=== PATIENT | female | born 1980 | race Caucasian/White ===

== ENCOUNTER 2022-08-24 08:20 | Emergency (ER) | payer OTHER, MEDICAID ==
[2022-08-24 08:36] VITALS: BP 114/61
--- NOTE | 2022-08-24 08:55 | ED Physician Documentation ---
PD HPI Fall - Stated complaint Stated Complaint: RT WRIST/ VARGAS PAIN - Chief complaint Chief Complaint: Trauma Ext - History obtained from History obtained from: Patient - History of Present Illness Mechanism of injury: Slipped Fall distance: Standing position (She had clean the shower with some bleach and states the bottom was slippery. She slipped and fell getting in. Banged her vargas and landed on her hand. Pain at the thenar thumb.) Where injury occurred: Home Timing - onset: Last night Injury(ies) location: Right Upper Extremity, Right Lower Extremity Quality of pain: Pain, Aching Associated symptoms: Weakness (she states thumb movement hurts and feels weak. Has swelling and bruising of thenar area and base of thumb. Some soreness right vargas.). No: Paresthesias Worsens with: Movement, Palpation Similar symptoms before: Has not had sx before Recently seen: Not recently seen Review of Systems Cardiac: denies: Chest pain / pressure GI: denies: Abdominal Pain Skin: denies: Abrasion (s), Laceration (s) Neurologic: denies: Confused, Altered mental status, Headache, Head injury PD PAST MEDICAL HISTORY - Present Medications Home Medications: Ambulatory Orders Medication Instructions Recorded Confirmed Semaglutide [Ozempic] 2 mg SQ .ONCE A WEEK 08/24/22 08/24/22 amLODIPine [Norvasc] 10 mg PO DAILY 08/24/22 08/24/22 hydroCHLOROthiazide [Hydrodiuril] 25 mg PO DAILY 08/24/22 08/24/22 metFORMIN [Glucophage] 1,000 mg PO BIDWM 08/24/22 08/24/22 - Allergies Allergies/Adverse Reactions: Allergies Allergy/AdvReac Type Severity Reaction Status Date / Time Unable to Assess Allergy Verified 08/24/22 08:35 PD ED PE NORMAL - Vitals Vital signs reviewed: Yes - General General: Alert and oriented X 3, Well developed/nourished - Derm Derm: Normal color, Warm and dry - Extremities Extremities: Other (The right vargas with some mild tenderness in the soft tissue. No bony tenderness and she is able to bear weight fully. The right thumb shows bruising and swelling and tenderness in the thenar eminence and palmar base of the thumb. No tender nor laxity at the UCL area. Opposition limited. ) - Neuro Neuro: No motor deficit, No sensory deficit Results - Vitals Vitals: Vital Signs - 24 hr 08/24/22 08:29 Temperature 98.6 C H Heart Rate 66 Respiratory 15 Rate Blood Pressure 114/61 O2 Saturation 98 Oxygen O2 Source Room air - Rads (name of study) right hand Relevant Findings:: Prelim report reviewed, EMP independent interpretation of test (no fractures), See rad report right ankle Relevant Findings:: Prelim report reviewed, EMP independent interpretation of test (no fractures), See rad report PD Medical Decision Making - ED course Complexity details: reviewed results, considered differential (Bruising and likely some sprain at the base of the thumb and into the thenar muscles. No apparent injury of the UCL. No fracture. Opposition is limited due to pain and swelling but should improve. Velcro thumb spica splint is given.), d/w patient Departure - Departure Disposition: 01 Home, Self Care Clinical Impression: Fall from slip, trip, or stumble Qualifiers: Encounter type: initial encounter Qualified Code(s): W01.0XXA - Fall on same level from slipping, tripping and stumbling without subsequent striking against object, initial encounter Thumb sprain Qualifiers: Encounter type: initial encounter Sprain of finger site: metacarpophalangeal joint Laterality: right Qualified Code(s): S63.641A - Sprain of metacarpophalangeal joint of right thumb, initial encounter Contusion, lower leg Qualifiers: Encounter type: initial encounter Laterality: right Qualified Code(s): S80.11XA - Contusion of right lower leg, initial encounter Condition: Stable Record reviewed to determine appropriate education?: Yes Instructions: ED Sprain Finger Follow-Up: Orthopedic Care [Provider Group] Comments: Your x-rays are good without any signs of fractures. Obviously you have the bruising of the right vargas and that should slowly improve with time. Activity as tolerated. The thumb base sounds like it sprained with some partial tear of some ligaments or muscles given the pain on motion. There certainly can be just some bruising component with swelling and stiffness which would get better sooner than soft tissue injuries such as ligament strain/tear. On exam it does not seem like you have the more significant type of injuries such as the anchoring ligament for the base of the thumb. As such I believe you can get better which is the thumb splint over the next 1 to 3 weeks. Follow-up with orthopedics if not improving really well within the first 1 to 1- 1/2 weeks and resolved by 3 weeks. Elevate ice and rest for swelling often today. Tylenol ibuprofen as needed for pains. Use the thumb splint on most of the time. Discharge Date/Time: 08/24/22 09:54
--- NOTE | 2022-08-24 09:21 | XRAY Report ---
PROCEDURE: Wrist 4 View RT INDICATIONS: Trauma TECHNIQUE: 4 views of the wrist were acquired. COMPARISON: None. FINDINGS: Bones: No fractures or dislocations. No suspicious bony lesions. Scaphoid view: Scaphoid is intact. Soft tissues: No suspicious soft tissue calcifications or masses. IMPRESSION: No acute wrist fracture or dislocation. Reviewed by: Bryce Echevarria MD on 08/24/2022 8:20 AM [facility] Approved by: Bryce Echevarria MD on 08/24/2022 8:20 AM [facility] Station ID: [id number]
--- NOTE | 2022-08-24 09:22 | XRAY Report ---
PROCEDURE: Ankle 3 View RT INDICATIONS: Trauma TECHNIQUE: 3 views of the ankle were acquired. COMPARISON: None. FINDINGS: Bones: No fractures or dislocations. Mild midfoot and hindfoot joint osteoarthritic changes are seen with joint space narrowing and subchondral sclerosis. Well-defined plantar and dorsal calcaneal enth esophytes also noted. Ankle mortise is normally aligned. No suspicious bony lesions. Soft tissues: No tibiotalar joint effusion. Achilles tendon appears normal. IMPRESSION: No acute ankle fracture or dislocation. Mild midfoot and hindfoot joint osteoarthritis and calcaneal enthesophytes as above. Reviewed by: Bryce Echevarria MD on 08/24/2022 8:21 AM [facility] Approved by: Bryce Echevarria MD on 08/24/2022 8:21 AM [facility] Station ID: [id number]
== END 2022-08-24 09:54 | disposition home or self-care (01) ==
LOC: ED 08:20
DX: S63.641A Sprain of metacarpophalangeal joint of right thumb, initial encounter (principal); S80.11XA Contusion of right lower leg, initial encounter; W18.2XXA Fall in (into) shower or empty bathtub, initial encounter
CPT/HCPCS: 99283

== ENCOUNTER 2022-10-18 13:28 | Emergency (ER) | payer OTHER, MEDICAID ==
[2022-10-18 13:51] LABS: BASOPHILS % (AUTO) 0.6 %; EOSINOPHILS # (AUTO) 0.3 10^3/uL (0.0-0.7); HCT - HEMATOCRIT 40.6 % (37.0-47.0); HGB - HEMOGLOBIN 13.6 g/dL (12.0-16.0); LYMPHOCYTES # (AUTO) 1.7 10^3/uL (1.5-3.5); LYMPHOCYTES % (AUTO) 25.4 %; MEAN CORPUSCULAR HEMOGLOBIN 29.5 pg (27.0-31.0); MEAN CORPUSCULAR HGB CONC 33.5 g/dL (32.0-36.0); MEAN CORPUSCULAR VOLUME 88.1 fL (81.0-99.0); MEAN PLATELET VOLUME 10.4 fL (7.9-10.8); MONOCYTES # (AUTO) 0.4 10^3/uL (0.0-1.0); MONOCYTES % (AUTO) 5.9 %; NEUTROPHILS # (AUTO) 4.2 10^3/uL (1.5-6.6); NEUTROPHILS % (AUTO) 63.9 %; PLT - PLATELET COUNT 237 10^3/uL (130-450); RED BLOOD COUNT 4.61 10^6/uL (4.20-5.40); RED CELL DISTRIBUTION WIDTH 12.6 % (12.0-15.0); WHITE BLOOD COUNT 6.6 x10^3/uL (4.8-10.8)
[2022-10-18 14:04] LABS: ALBUMIN 4.1 g/dL (3.2-5.5); ALBUMIN/GLOBULIN RATIO 1.2 (1.0-2.2); BILIRUBIN,TOTAL 0.7 mg/dL (0.2-1.0); CALCIUM 9.3 mg/dL (8.5-10.3); CREATININE 0.8 mg/dL (0.4-1.0); POTASSIUM 3.2 mmol/L (3.5-5.0); TOTAL PROTEIN 7.4 g/dL (6.7-8.2)
[2022-10-18] MEDS ORDERED: SODIUM CHLORIDE 0.9% 1,000 ML IV STA (14:38)
[2022-10-18] MEDS ORDERED: POTASSIUM BICARB 25 MEQ TABLET PO STA (14:40)
--- NOTE | 2022-10-18 14:42 | ED Physician Documentation ---
History of Present Illness - Stated complaint Stated Complaint: DIZZINESS - Chief complaint Chief Complaint: Neuro - Additonal information Additional information: 42-year-old female presents emergency department for evaluation of feeling lig htheaded, dizzy and a syncopal episode last night. She states that for several weeks she has been feeling fatigued and just not herself. Last night she heard her son crying in the other room. He is a special needs child. She got up in her arms and legs just felt very heavy and she collapsed to the ground. She is unsure if she lost consciousness or not. She denies that she is having palpitations, chest pain or shortness of air. Since then she has just felt dizzy and lightheaded. Some nausea but no vomiting. No abdominal pain. Review of Systems Constitutional: reports: Fatigue. denies: Fever Eyes: reports: Reviewed and negative Nose: reports: Reviewed and negative Throat: reports: Reviewed and negative Cardiac: denies: Chest pain / pressure, Palpitations, Pedal edema Respiratory: reports: Reviewed and negative GI: reports: Reviewed and negative : reports: Reviewed and negative Musculoskeletal: reports: Reviewed and negative Neurologic: reports: Syncope, Other (Lightheaded) Psychiatric: reports: Reviewed and negative PD PAST MEDICAL HISTORY - Present Medications Home Medications: Ambulatory Orders Medication Instructions Recorded Confirmed Semaglutide [Ozempic] 2 mg SQ .ONCE A WEEK 08/24/22 08/24/22 amLODIPine [Norvasc] 10 mg PO DAILY 08/24/22 08/24/22 hydroCHLOROthiazide [Hydrodiuril] 25 mg PO DAILY 08/24/22 08/24/22 metFORMIN [Glucophage] 1,000 mg PO BIDWM 08/24/22 08/24/22 - Allergies Allergies/Adverse Reactions: Allergies Allergy/AdvReac Type Severity Reaction Status Date / Time Unable to Assess Allergy Verified 08/24/22 08:35 PD ED PE NORMAL - General General: Alert and oriented X 3, No acute distress - HEENT HEENT: Atraumatic, Moist mucous membranes - Neck Neck: Supple, no meningeal sign - Cardiac Cardiac: RRR, No murmur, Strong equal pulses - Respiratory Respiratory: No respiratory distress, Clear bilaterally - Abdomen Abdomen: Normal bowel sounds, Soft, Non tender - Back Back: No CVA TTP - Derm Derm: Normal color, Warm and dry, No rash - Extremities Extremities: No deformity - Neuro Neuro: Alert and oriented X 3, gamer 2-12 intact, No motor deficit, No sensory deficit, Normal speech, Other (Normal finger-nose, normal gait, normal heel/toe, normal rapid alternating movements) Eye Opening: Spontaneous Motor: Obeys Commands Verbal: Oriented GCS Score: 15 Results - Vitals Vitals: Vital Signs - 24 hr 10/18/22 10/18/22 10/18/22 13:32 14:39 15:09 Temperature 37.1 C Heart Rate 79 77 Heart Rate [ 73 Sitting] Heart Rate [ 71 Standing] Heart Rate [ 78 Supine] Respiratory 18 16 Rate Blood Pressure 127/76 126/83 H Blood Pressure 125/84 H [Sitting] Blood Pressure 129/81 H [Standing] Blood Pressure 122/78 [Supine] O2 Saturation 98 97 Oxygen O2 Source Room air - EKG (time done) 1337 EKG releavant findings:: EKG personally interpreted by author of this note. Relevant findings are: Rate: Rate (enter#) (76) Rhythm: NSR [place]: Normal Intervals: Normal [place] QRS: Normal Ischemia: Non specific changes Compare to prior EKG: Old EKG unavailable Computer interpretation: Agree with computer - Labs Labs: Laboratory Tests 10/18/22 10/18/22 10/18/22 13:39 13:45 13:45 WBC 6.6 RBC 4.61 Hgb 13.6 Hct 40.6 MCV 88.1 MCH 29.5 MCHC 33.5 RDW 12.6 Plt Count 237 MPV 10.4 Neut # (Auto) 4.2 Lymph # (Auto) 1.7 Elbert # (Auto) 0.4 Eos # (Auto) 0.3 Baso # (Auto) 0.0 Absolute Nucleated RBC 0.00 Nucleated RBC % 0.0 Sodium 139 Potassium 3.2 L Chloride 102 Carbon Dioxide 28 Anion Gap 9.0 BUN 9 Creatinine 0.8 Estimated GFR (MDRD) 79 L Glucose 120 H POC Whole Bld Glucose 119 H Calcium 9.3 Total Bilirubin 0.7 AST 16 ALT 18 Alkaline Phosphatase 39 L Troponin I High Sens Total Protein 7.4 Albumin 4.1 Globulin 3.3 Albumin/Globulin Ratio 1.2 Lipase 36 TSH Serum HCG, Qual 10/18/22 10/18/22 10/18/22 13:45 13:45 13:45 WBC RBC Hgb Hct MCV MCH MCHC RDW Plt Count MPV Neut # (Auto) Lymph # (Auto) Elbert # (Auto) Eos # (Auto) Baso # (Auto) Absolute Nucleated RBC Nucleated RBC % Sodium Potassium Chloride Carbon Dioxide Anion Gap BUN Creatinine Estimated GFR (MDRD) Glucose POC Whole Bld Glucose Calcium Total Bilirubin AST ALT Alkaline Phosphatase Troponin I High Sens < 2.3 L Total Protein Albumin Globulin Albumin/Globulin Ratio Lipase TSH 3.17 Serum HCG, Qual NEGATIVE - Rads (name of study) CT head Relevant Findings:: Final report received (Noncontrast CT head within normal limits) PD Medical Decision Making - ED course Complexity details: reviewed results, re-evaluated patient, considered differential, d/w patient ED course: 42-year-old female presents emergency department for evaluation of what sounds like a syncopal episode last night when she was ambulating to her son's room after she had gotten out of bed because she heard him cry. She denied any prodromal symptoms of the syncope. Denies chest pain, shortness of air or palpitations. No history of similar but states that for the last several weeks she has not been feeling herself. Here in the emergency department she appears alert and well-appearing. Normal vital signs for age. No fever, tachycardia or hypotension. She had an unremarkable cardiopulmonary auscultation. Normal neurological exam and normal cerebellar exam. We did obtain a CBC, electrolytes and TSH and troponin. Per my interpretation the only abnormal finding was that of mild hyperglycemia with a blood sugar of 120. We did obtain orthostatics which were negative Patient was administered a liter of fluids here in the emergency department A chest x-ray was normal for age showed no signs of pneumonia, pleural effusion or pneumothorax. We did obtain orthostatic vital signs today in the emergency department and that was negative. Subsequently a CT of the head was obtained for the report of persistent dizziness and was also negative. At this time is not clear what the etiology of the patient's symptoms are though I suspect she simply had a syncopal episode after being in bed last night. I have advised her to formally discuss this ED visit with her primary care pro vider. She may benefit from referral for an echocardiogram or Holter monitor. The usual emergent return precautions were discussed for worsening symptoms. Departure - Departure Disposition: 01 Home, Self Care Clinical Impression: Syncope Qualifiers: Syncope type: unspecified Qualified Code(s): R55 - Syncope and collapse Condition: Stable Record reviewed to determine appropriate education?: Yes Comments: You were seen today because last night while walking you suddenly dropped to the ground. Is not clear if you fainted or simply got very dizzy and lost balance. The chest x-ray today is normal. Your CT of the head is normal. Your EKG also shows no worrisome findings. Your labs including CBC, electrolytes, troponin and thyroid panel are also essentially normal. You did have a mild blood glucose elevation of 120. At this time it is not clear what the cause of your symptoms was last night though your neurological and cardiovascular exam are normal. I would like you to discuss this ED visit with your primary care doctor. You may benefit from referral for a Holter monitor or echocardiogram. Please return to the ER if your symptoms are worsening
[2022-10-18 15:03] LABS: HCG,QUALITATIVE BLOOD NEGATIVE
--- NOTE | 2022-10-18 15:56 | CT Report ---
PROCEDURE: HEAD WO INDICATIONS: dizzy, headache TECHNIQUE: Noncontrast 4.5 mm thick angled axial sections acquired from the foramen magnum to the vertex. For r adiation dose reduction, the following was used: automated exposure control, adjustment of mA and/or kV according to patient size. COMPARISON: None. FINDINGS: Image quality: There is streak artifact seen through the skull base. CSF spaces: Basal cisterns are patent. No extra-axial fluid collections. Ventricles are normal in size and shape. Brain: No midline shift. No intracranial masses or hemorrhage. Mcconnell-white matter interface is norm al. Skull and face: Calvarium and visualized facial bones are intact, without suspicious lesions. Sinuses: Visualized sinuses and mastoids are clear. IMPRESSION: Noncontrast head CT within normal limits. To the limits of this noncontrast head CT, no findings of masses or mass effect can be seen. No hydro cephalus. Reviewed by: Dominic Ferrell MD on 10/18/2022 2:55 PM [facility] Approved by: Dominic Ferrell MD on 10/18/2022 2:55 PM [facility] Station ID: [id number]
[2022-10-18 16:24] VITALS: BP 125/74
== END 2022-10-18 16:27 | disposition home or self-care (01) ==
LOC: ED 13:28
DX: R55 Syncope and collapse (principal); Z79.84 Long term (current) use of oral hypoglycemic drugs; Z79.899 Other long term (current) drug therapy
CPT/HCPCS: 36415; 70450; 80053; 83690; 84443; 84484; 84703; 85025; 93005; 99281; 99283; A9270

== ENCOUNTER 2023-01-19 17:54 | Emergency (ER) | payer MEDICAID, OTHER ==
--- NOTE | 2023-01-19 18:21 | ED Physician Documentation ---
History of Present Illness - Stated complaint Stated Complaint: NECK SWELLING - Chief complaint Chief Complaint: Heent - History obtained from History obtained from: Patient - Additonal information Additional information: 42-year-old woman with history of chronic neck issues and cervical radiculopathy, hypothyroidism and PCOS presents with a 2-day history of anterior left especially neck swelling with a localized rash in that area. Is not associated with URI symptoms but noting she does not have chronically runny nose but unchanged from prior. No fevers. She is never had anything like this be fore. PD PAST MEDICAL HISTORY - Present Medications Home Medications: Ambulatory Orders Medication Instructions Recorded Confirmed hydroCHLOROthiazide [Hydrodiuril] 25 mg PO DAILY 08/24/22 08/24/22 metFORMIN [Glucophage] 1,000 mg PO BIDWM 08/24/22 08/24/22 Cyclobenzaprine [Flexeril] 10 mg PO QPM PRN 01/19/23 01/19/23 Meloxicam [Mobic] 7.5 mg PO BID PRN #20 tablet 01/19/23 buPROPion HCL [Bupropion Xl] 150 mg PO DAILY 01/19/23 01/19/23 - Allergies Allergies/Adverse Reactions: Allergies Allergy/AdvReac Type Severity Reaction Status Date / Time Unable to Assess Allergy Verified 01/19/23 18:13 PD ED PE NORMAL - Vitals Vital signs reviewed: Yes - General General: Alert and oriented X 3, No acute distress - HEENT HEENT: PERRL, EOMI - Neck Neck: Supple, no meningeal sign, No bony TTP, Other (Subtle anterior left-sided neck swelling superior to the clavicle kind of in the area between the 2 heads of the sternocleidomastoids.) - Cardiac Cardiac: RRR, No murmur - Respiratory Respiratory: No respiratory distress, Clear bilaterally - Abdomen Abdomen: Non tender - Neuro Neuro: Alert and oriented X 3, Normal speech Results - Vitals Vitals: Vital Signs - 24 hr 01/19/23 01/19/23 18:09 20:50 Temperature 36.9 C Heart Rate 80 77 Respiratory 15 16 Rate Blood Pressure 135/90 H 118/80 O2 Saturation 99 100 Oxygen O2 Source Room air - Labs Labs: Laboratory Tests 01/19/23 01/19/23 18:35 18:35 WBC 6.7 RBC 4.51 Hgb 13.2 Hct 40.5 MCV 89.8 MCH 29.3 MCHC 32.6 RDW 12.5 Plt Count 235 MPV 10.2 Neut # (Auto) 4.4 Lymph # (Auto) 1.8 Grainger # (Auto) 0.4 Eos # (Auto) 0.1 Baso # (Auto) 0.0 Absolute Nucleated RBC 0.00 Nucleated RBC % 0.0 Sodium 138 Potassium 3.4 L Chloride 102 Carbon Dioxide 30 Anion Gap 6.0 BUN 14 Creatinine 0.8 Estimated GFR (MDRD) 79 L Glucose 84 Calcium 9.4 Total Bilirubin 0.5 AST 10 ALT 9 L Alkaline Phosphatase 49 Total Protein 7.3 Albumin 4.6 Globulin 2.7 Albumin/Globulin Ratio 1.7 - Rads (name of study) CT soft tissue neck normal with regard to the anterior neck. There is degenerative disc disease at C5-6 and C6-7 Relevant Findings:: Final report received, EMP independent interpretation of test PD Medical Decision Making - ED course Complexity details: reviewed results (CBC and CMP unremarkable.) ED course: 42-year-old woman has a sensation of swelling in the area of the left sternocleidomastoid anteriorly and difficulty with rotation of her head with known cervical disc disease. CT of the neck soft tissue shows no mass lesion in that area so my best guess is that this represents spasm of the sternocleidomastoid. 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 Departure - Departure Disposition: 01 Home, Self Care Clinical Impression: Neck pain Condition: Good Record reviewed to determine appropriate education?: Yes Instructions: ED Neck Pain No Trauma Prescriptions: Meloxicam [Mobic] 7.5 mg PO BID PRN #20 tablet PRN Reason: Pain Comments: CT soft tissue neck shows no concerning findings of swelling or mass lesion in the area, so I suspect what you are feeling represents spasm of the sternocleidomastoid muscle which is where your sensation of swelling is. You should continue the plan of EMG as you are planning and following up with your surgeon after that. Return for new or worsening symptoms. Forms: PCP List Discharge Date/Time: 01/19/23 21:02
[2023-01-19 18:47] LABS: BASOPHILS % (AUTO) 0.3 %; EOSINOPHILS # (AUTO) 0.1 10^3/uL (0.0-0.7); EOSINOPHILS % (AUTO) 1.5 %; HCT - HEMATOCRIT 40.5 % (37.0-47.0); HGB - HEMOGLOBIN 13.2 g/dL (12.0-16.0); LYMPHOCYTES # (AUTO) 1.8 10^3/uL (1.5-3.5); LYMPHOCYTES % (AUTO) 26.3 %; MEAN CORPUSCULAR HEMOGLOBIN 29.3 pg (27.0-31.0); MEAN CORPUSCULAR HGB CONC 32.6 g/dL (32.0-36.0); MEAN CORPUSCULAR VOLUME 89.8 fL (81.0-99.0); MEAN PLATELET VOLUME 10.2 fL (7.9-10.8); MONOCYTES # (AUTO) 0.4 10^3/uL (0.0-1.0); MONOCYTES % (AUTO) 6.1 %; NEUTROPHILS # (AUTO) 4.4 10^3/uL (1.5-6.6); NEUTROPHILS % (AUTO) 65.5 %; PLT - PLATELET COUNT 235 10^3/uL (130-450); RED BLOOD COUNT 4.51 10^6/uL (4.20-5.40); RED CELL DISTRIBUTION WIDTH 12.5 % (12.0-15.0); WHITE BLOOD COUNT 6.7 x10^3/uL (4.8-10.8)
[2023-01-19 19:07] LABS: ALBUMIN 4.6 g/dL (3.2-5.5); ALBUMIN/GLOBULIN RATIO 1.7 (1.0-2.2); BILIRUBIN,TOTAL 0.5 mg/dL (0.2-1.0); CALCIUM 9.4 mg/dL (8.5-10.3); CREATININE 0.8 mg/dL (0.6-1.3); POTASSIUM 3.4 mmol/L (3.5-4.5); TOTAL PROTEIN 7.3 g/dL (6.4-8.9)
--- NOTE | 2023-01-19 20:35 | CT Report ---
PROCEDURE: SOFT TISSUE NECK W INDICATIONS: L neck swell CONTRAST: 100mL Omni 300 TECHNIQUE: After the administration of intravenous contrast, 3.0 mm axial sections acquired from the sella to th e aortic arch. Additional oblique axial 3.0 mm sections acquired through the pharynx. 3 mm thick co homa reformats were generated. For radiation dose reduction, the following was used: automated exp osure control, adjustment of mA and/or kV according to patient size. COMPARISON: None. FINDINGS: Image quality: Excellent. Lymph nodes: No enlarged lymph nodes seen throughout the neck. Vessels: Visualized vasculature appears patent. Neck spaces: The oropharynx, nasopharynx, and pharynx demonstrate no mucosal lesions. The vocal cor ds, false vocal cords, pyriform sinuses, epiglottis, vallecula, and tongue base all appear normal. E xtramucosal spaces appear unremarkable. Glands: The parotid and submandibular glands appear normal. The thyroid is normal in size and there are no incidental findings. Miscellaneous: Visualized brain and orbits appear normal. Lung apices appear clear. Superficial so ft tissues appear normal. Bones: No suspicious bony lesions. Visualized sinuses and mastoids appear unremarkable. Degenerati ve disc disease at C5-6 and C6-7 levels are seen with anterior disc osteophyte complex. IMPRESSION: 1. No neck soft tissue lymphadenopathy by size criteria. 2. No neck soft tissue mass or drainable fluid collection. Airway is patent. No abscess collection. 3. Mild degenerative disc disease at C5-6 and C6-7 levels as above. CLINICAL RECOMMENDATION STATEMENTS: In patients <35 years with an ITN detected on CT, MRI, or extrathyroidal ultrasound, the Committee re commends further evaluation with dedicated thyroid ultrasound if the nodule is "e1 cm and has no susp icious imaging features, and if the patient has normal life expectancy. In patients "e35 years with an ITN detected on CT, MRI, or extrathyroidal ultrasound, the Committee r ecommends further evaluation with dedicated thyroid ultrasound if the nodule is "e1.5 cm and has no s uspicious imaging features, and if the patient has normal life expectancy. (ACR, 2014) Reviewed by: Bryce Echevarria MD on 01/19/2023 8:34 PM PDT Approved by: Bryce Echevarria MD on 01/19/2023 8:34 PM PDT Station ID: [id number]
[2023-01-19] MEDS ORDERED: KETOROLAC 15 MG/ML VIAL IVP STA (20:50)
[2023-01-19 20:56] VITALS: BP 118/80; O2SAT 100
[2023-01-19] MEDS ORDERED: iohexoL-300 100 ML VIAL IVP ONE (23:41)
== END 2023-01-19 21:02 | disposition home or self-care (01) ==
LOC: ED 17:54
DX: M54.2 Cervicalgia (principal)
CPT/HCPCS: 36415; 70491; 80053; 85025; 96374; 99283; 99284; Q9967